=== PATIENT | male | born 1955 | race African-American/Black ===

== ENCOUNTER 2018-11-05 12:19 | Emergency (ER) | payer MEDICARE ==
[~2018-11-05] VITALS: Ht 175.3 cm; Wt 86.0 kg
[2018-11-05 12:28] VITALS: BP 110/77
== END 2018-11-05 15:06 | disposition left against medical advice (07) ==
LOC: ER 12:19
DX: M25.50 Pain in unspecified joint (principal); M79.10 Myalgia, unspecified site; Z53.21 Procedure and treatment not carried out due to patient leaving prior to being seen by health care provider